=== PATIENT | male | born 1990 | race Two or more races ===

== ENCOUNTER 2024-10-09 21:10 | Emergency (ER) | payer MEDICARE, OTHER ==
[~2024-10-09] VITALS: Ht 165.1 cm; Wt 59.0 kg
[2024-10-09 21:21] VITALS: BP 144/90; PULSE 90; RESP 14; O2SAT 98
== END 2024-10-10 01:17 | disposition left against medical advice (07) ==
LOC: EDBD 21:10 → ER 21:10
DX: R04.0 Epistaxis (principal); Z53.21 Procedure and treatment not carried out due to patient leaving prior to being seen by health care provider

== ENCOUNTER 2025-06-08 14:20 | Inpatient (IN) | payer MEDICARE, MEDICAID ==
[~2025-06-08] VITALS: Ht 172.7 cm; Wt 56.9 kg
--- NOTE | 2025-06-08 15:24 | ED.PDOC ---
GI ASSESSMENT HPI Comments This is a 35 year old male presenting to the ED with chief complaint of N/V/D. Patient reports that he has been experiencing N/V/D since Thursday. Patient relays that he feels weak and is unable to eat much now. Patient states he is currently on dialysis with his last round being this morning. Patient denies any abdominal pain, fever, chills, dizziness, or hematemesis. Chief Complaint: General Weakness Time Seen by MD: 15:20 Reviewed Notes: Nurses Notes, Medications, Allergies Allergies: Coded Allergies: NO KNOWN ALLERGIES (Unverified , 10/09/24) Information Source: Patient Mode of Arrival: Ambulatory Timing: Days Duration: Since onset Prehospital treatment: None Vomitus: Watery Stool: Watery Severity: Moderate Recent: None Recent Hx of: None Pain Location: None Modifying Factors: Nothing Associated sign and symptoms: Nausea, Vomiting, Diarrhea Past Medical History PAST MEDICAL HISTORY: CKF, HIV Surgical History: Denies all surgeries Family History Family History: Reviewed,noncontributory to illness Social History Smoker: Non-Smoker Alcohol: Denies ETOH Use Drugs: Denies Drug Use Lives In: Home Constitutional: denies: chills, diaphoresis, fatigue, fever, malaise, sweats, weakness, others EENTM: denies: blurred vision, double vision, ear bleeding, ear discharge, ear drainage, ear pain, ear ringing, eye pain, eye redness, hearing loss, mouth pain, mouth swelling, nasal discharge, nose bleeding, nose congestion, nose pain, photophobia, tearing, throat pain, throat swelling, voice changes, others Respiratory: denies: cough, hemoptysis, orthopnea, SOB at rest, shortness of breath, SOB with excertion, stridor, wheezing, others Cardiovascular: denies: chest pain, dizzy spells, diaphoresis, Dyspnea on exertion, edema, irregular heart beat, left arm pain, lightheadedness, palpitations, PND, syncope, others Gastrointestinal: reports: diarrhea, nausea, vomiting; denies: abdomen diste nded, abdominal pain, blood streaked bowels, constipated, dysphagia, difficulty swallowing, hematemesis, melena, poor appetite, poor fluid intake, rectal bleeding, rectal pain, others Genitourinary: denies: burning, dysuria, flank pain, frequency, hematuria, incontinence, penile discharge, penile sore, pain, testicle pain, testicle swelling, urgency, others Neurological: denies: dizziness, fainting, headache, left sided numbness, left sided weakness, numbness, paresthesia, pre-existing deficit, right sided numbness, right sided weakness, seizure, speech problems, tingling, tremors, weakness, others Musculoskeletal: denies: back pain, gout, joint pain, joint swelling, muscle pain, muscle stiffness, neck pain, others Integumetry: denies: bruises, change in color, change in hair/nails, dryness, laceration, lesions, lumps, rash, wounds, others Allergic/Immunocompromised: denies: Difficulty Healing, Frequent Infections, Hives, Itching, others Hematologic/Lymphatic: denies: anemia, blood clots, easy bleeding, easy bruising, swollen glands, others Endocrine: denies: excessive hunger, excessive sweating, excessive thirst, excessive urination, flushing, intolerance to cold, intolerance to heat, unexplained weight gain, unexplained weight loss, others Psychiatric: denies: anxiety, bipolar disorder, depression, hopeless, panic disorder, schizophrenia, sleepless, suicidal, others All Other Systems: Reviewed and Negative Physical Exam General Appearance: No Apparent Distress, Normal HEENT: Normal ENT Inspection, Pharynx Normal, TMs Normal Neck: Full Range of Motion, Non-Tender, Normal, Normal Inspection Respiratory: Chest Non-Tender, Lungs Clear, No Accessory Muscle Use, No Respiratory Distress, Normal Breath Sounds Cardiovascular: No Edema, No JVD, No Murmur, No Gallop, Normal Peripheral Pulses, Regular Rate/Rhythm Breast Exam: Deferred Gastrointestinal: No Organomegaly, Non Tender, No Pulsatile Mass, Normal Bowel Sounds, Soft Genitalia: Deferred Pelvic: Deferred Rectal: Deferred Extremities: No calf tenderness, Normal capillary refill, Normal inspection, Normal range of motion, Non-tender, No pedal edema Musculoskeletal : Apperance: Normal Neurologic: Alert, obstetrics gyn II-XII nml as Tested, No Motor Deficits, Normal Affect, Normal Mood, No Sensory Deficits Cerebellar Function: Normal Reflexes: Normal Skin: Dry, Normal Color, Warm Lymphatic: No Adenopathy Was a procedure done? Was a procedure done?: No GI differential Dx Differential Diagnosis: Cholecystitis, Gastritis/PUD, Gastroenteritis, Urolithiasis, Dehydration, Electrolyte Imbalance X-Ray, Labs, Meds, VS Vital Signs Date Time Temp Pulse Resp B/P (MAP) Pulse Ox O2 Delivery O2 Flow Rate FiO2 06/08/25 15:47 97 Room Air* 0 21 06/08/25 15:45 93 06/08/25 15:37 98.4 90 17 109/71 (84) 96 98.4 06/08/25 14:22 98.0 85 16 102/71 97 98.0 Lab Test 06/08/25 15:29 Range/Units White Blood Count 4.4 4.4-10.8 10^3/uL Red Blood Count 4.33 L 4.5-5.90 10^6/uL Hemoglobin 15.4 13.5-17.5 g/dL Hematocrit 46.3 41.0-53.0 % Mean Corpuscular Volume 106.8 H 80.0-100.0 fL Mean Corpuscular Hemoglobin 35.5 H 28.0-32.0 pg Mean Corpuscular Hemoglobin Concent 33.3 32.0-36.0 g/dL Red Cell Distribution Width 16.3 H 11.8-14.3 % Platelet Count 181 140-450 10^3/uL Mean Platelet Volume 9.3 6.9-10.8 fL Neutrophils (%) (Auto) 37.0-80.0 % Lymphocytes (%) (Auto) 10.0-50.0 % Monocytes (%) (Auto) 0.0-12.0 % Basophils (%) (Auto) 0.0-2.0 % Neutrophils # (Auto) 1.6-8.6 10 ^3/uL Lymphocytes # (Auto) 0.4-5.4 10 ^3/uL Monocytes # (Auto) 0-1.3 10 ^3/uL Differential Total Cells Counted 100.0 100 Neutrophils % (Manual) 60 37.0-80.0 Band Neutrophils % (Manual) 0 Lymphocytes % (Manual) 20 10.0-50.0 Monocytes % (Manual) 17 H 0-12 Eosinophils % (Manual) 3 0-7 Basophils % (Manual) 0 0.0-2.0 Metamyelocytes % (manual) 0 Myelocytes % (Manual) 0 Promyelocytes % (Manual) 0 Blast Cells % (Manual) 0 Reactive Lymphocytes 0 Platelet Estimate Adequate Anisocytosis (manual) Slight Macrocytosis Moderate Sodium Level 134 L 136-145 mmol/L Potassium Level 4.3 3.5-5.1 mmol/L Chloride Level 90 L 98-107 mmol/L Carbon Dioxide Level 27 20-31 mmol/L Anion Gap 17 H 5-15 Blood Urea Nitrogen 22 9-23 mg/dL Creatinine 10.89 *H 0.700-1.30 mg/dL Glomerular Filtration Rate Calc 6 >90 mL/min BUN/Creatinine Ratio 2.0 L 10.0-20.0 Serum Glucose 76 74-106 mg/dL Calcium Level 9.8 8.7-10.4 mg/dL Current Medications Medications (Trade) Dose Ordered Sig/Keith Route Start Time Stop Time Status Last Admin Sodium Chloride 500 ml @ 1,000 mls/hr Q30M ONCE IV 06/08/25 15:00 06/08/25 15:29 DC 06/08/25 15:36 Ondansetron HCl (Zofran) 4 mg ONCE ONCE IV 06/08/25 15:00 06/08/25 15:01 DC 06/08/25 15:36 Time of 1ST Reevaluation: 16:19 Reevaluation 1ST: Unchanged Patient Education/Counseling: Diagnosis, Treatment Family Education/Counseling: No Family Present SEPSIS Sepsis Screen Date sepsis recognized/suspect: Jun 08, 2025 Time Sepsis recognized/suspect: 1423 Recent Procedure: No On Antibiotic Therapy: No Respiratory Rate >20: No Heart Rate >90: No Temp<36 C (96.8 F) or >38.3 C: No SBP <90 or MAP <65 mmHG: No New Acute Mental Status Change: No Is the patient on CPAP, BIPAP,: No Physician Orders Urinalysis (06/08/25 14:55) Chest Portable (06/08/25 14:55) Vital Signs Date Time Temp Pulse Resp B/P (MAP) Pulse Ox O2 Delivery O2 Flow Rate FiO2 06/08/25 15:47 97 Room Air* 0 21 06/08/25 15:45 93 06/08/25 15:37 98.4 90 17 109/71 (84) 96 98.4 06/08/25 14:22 98.0 85 16 102/71 97 98.0 Laboratory Tests Test 06/08/25 15:29 White Blood Count 4.4 10^3/uL (4.4-10.8) Medications Medications Dose Ordered Sig/Keith Route Start Time Stop Time Status Last Admin Dose Admin Ondansetron HCl 4 mg ONCE ONCE IV 06/08/25 15:00 06/08/25 15:01 DC 06/08/25 15:36 Sodium Chloride 500 ml @ 1,000 mls/hr Q30M ONCE IV 06/08/25 15:00 06/08/25 15:29 DC 06/08/25 15:36 Departure 1 Departure Time of Disposition: 18:06 (Patient with intractable nausea and vomiting we will admit patient for further workup and expert consultation) Impression: Primary Impression: Intractable nausea and vomiting Additional Impression: Near syncope Disposition: ADMITTED INPATIENT Admit to: Med Surg Condition: Serious Critical Care Note Critical Care Time?: No Stability Stability form required: No Heart Score Heart Score: Heart Score Response (Comments) Value History N/A 0 EKG N/A 0 Age N/A 0 Risk Factors N/A 0 Troponin N/A 0 Total 0 I personally scribed for TOBY FARRIS MD ([email or web address]) on 06/08/25 at 15:23. Electronically submitted by Stalin Moreira ([email or web address]). TOBY FARRIS MD Jun 08, 2025 15:23
[2025-06-08] MEDS: ONDANSETRON HCL 4 MG/2 ML VIAL IV ONE (15:36)
[2025-06-08] MEDS: SODIUM CHLORIDE 0.9% 500 ML IV ONE (15:36)
[2025-06-08 15:43] LABS: Mean Corpuscular Volume 106.8 fL (80.0-100.0)
[2025-06-08 15:45] LABS: Hematocrit 46.3 % (41.0-53.0); Hemoglobin 15.4 g/dL (13.5-17.5); Mean Corpuscular Hemoglobin 35.5 pg (28.0-32.0)
--- NOTE | 2025-06-08 15:54 | DVH ---
CHEST RADIOGRAPH Indication: weakness Technique: Single frontal view of the chest was obtained Comparison: XR CHEST 1 VIEW on DOS: 06/08/24, XR CHEST 1 VIEW on DOS: 10/25/23, XR CHEST 1 VIEW on DOS: 10/22/23 FINDINGS: Lines and Tubes: None Lungs: No focal consolidation. Pleura: No effusion. No pneumothorax. Cardiomediastinal contours: Unremarkable Bones: No acute osseous abnormality. IMPRESSION: 1. No acute cardiopulmonary disease.
[2025-06-08 15:55] LABS: Potassium 4.3 mmol/L (3.5-5.1)
[2025-06-08 15:56] LABS: Anion Gap 17 (5-15); Calcium 9.8 mg/dL (8.7-10.4); Carbon Dioxide 27 mmol/L (20-31)
[2025-06-08 15:59] LABS: Chloride 90 mmol/L (98-107); Sodium 134 mmol/L (136-145)
[2025-06-08 16:01] LABS: BUN/Creatinine Ratio 2.0 (10.0-20.0); Blood Urea Nitrogen 22 mg/dL (9-23); Glucose 76 mg/dL (74-106)
[2025-06-08 16:42] LABS: Anisocytosis Slight; Macrocytosis Moderate; Total Cells Counted 100.0 (100)
[2025-06-08 20:00] VITALS: PULSE 73; RESP 17; O2SAT 94
--- NOTE | 2025-06-08 20:39 | DVHHPRES ---
History of Present Illness Resident Creating Document: JULIANE TALLEY RESIDENT History of Present Illness This is 35-year-old male with past medical history of HIV infection on Biktarvy, ESRD on dialysis, hypertension, presented to the ER with chief complain of nausea and diarrhea. Symptoms started 5 days back, he complained diarrheal episodes every 2 hours, described as watery like consistency, brown in color, without blood. He also complained of associated loss of appetite, nausea and vomiting. Patient reported 1 or 2 episode of vomiting daily, vomitus contained food/clear liquid, no hematemesis. He reports losing 4 lb weight since the start of this week, owing to loss of appetite. He traveled to [facility] 2 weeks ago but denies eating from food truck or any consumption of raw seafood. He is on hemodialysis, Tuesdays, Saturdays. Patient reports being compliant on his medications. PMHx: HIV infection on Biktarvy, ESRD on dialysis, hypertension PSHx: No significant surgical history Social history: Denies smoking, alcohol, recreational drug use. Lives in house with family, full code, next to kin is mother. Home medication: Biktarvy, amiodarone, sevelamer, trimethoprim sulfamethoxazole Allergic history: No known allergies Patient was examined at bedside today. Review of Systems Review of Systems ROS: Constitutional: 4 lb weight loss since the start of this week, subjective fever and chills HEENT: Denies changes in vision and hearing. Respiratory: Denies shortness of breath and cough Cardiovascular: Denies chest discomfort or palpitations GI: Nausea, vomiting, diarrhea : Denies dysuria and urinary frequency. Musculoskeletal: Denies myalgias and joint pain Skin: Denies rash and pruritus. Neurological: Denies dizziness, headache, vision or hearing problems Allergies: Coded Allergies: NO KNOWN ALLERGIES (Unverified , 10/09/24) Exam Vital Signs Vital Signs Date Time Temp Pulse Resp B/P (MAP) Pulse Ox O2 Delivery O2 Flow Rate FiO2 06/08/25 20:05 98.6 88 17 116/72 (87) 96 98.6 06/08/25 20:00 Room Air* 0 21 Exam General: Patient looks cachectic. Patient alert and oriented in person, place and time. Patient following commands. HEENT: Conjunctival injection in bilateral eyes, dry mucous membranes Respiratory/pulmonary: Clear lungs bilaterally, vesicular murmurs present in almost all lung cuellar, no associated crackles or wheezes. Cardiovascular: Normal heart sounds S1 and S2 with no associated murmurs Abdomen: Sunken abdomen without tenderness Extremities: Well-healed fistula on left arm Peripheral Pulses: 3+ Radial (R). 3+ Radial (L). 3+ Dorsalis pedis (R). 3+ Dorsalis pedis(L) Skin: No rashes or pruritus, there is no sacral edema present at this time. Neurological: Intact cranial nerves with no focal neurologic deficits Labs/Xrays Labs Test 06/08/25 15:29 Range/Units White Blood Count 4.4 4.4-10.8 10^3/uL Red Blood Count 4.33 L 4.5-5.90 10^6/uL Hemoglobin 15.4 13.5-17.5 g/dL Hematocrit 46.3 41.0-53.0 % Mean Corpuscular Volume 106.8 H 80.0-100.0 fL Mean Corpuscular Hemoglobin 35.5 H 28.0-32.0 pg Mean Corpuscular Hemoglobin Concent 33.3 32.0-36.0 g/dL Red Cell Distribution Width 16.3 H 11.8-14.3 % Platelet Count 181 140-450 10^3/uL Mean Platelet Volume 9.3 6.9-10.8 fL Neutrophils (%) (Auto) 37.0-80.0 % Lymphocytes (%) (Auto) 10.0-50.0 % Monocytes (%) (Auto) 0.0-12.0 % Basophils (%) (Auto) 0.0-2.0 % Neutrophils # (Auto) 1.6-8.6 10 ^3/uL Lymphocytes # (Auto) 0.4-5.4 10 ^3/uL Monocytes # (Auto) 0-1.3 10 ^3/uL Differential Total Cells Counted 100.0 100 Neutrophils % (Manual) 60 37.0-80.0 Band Neutrophils % (Manual) 0 Lymphocytes % (Manual) 20 10.0-50.0 Monocytes % (Manual) 17 H 0-12 Eosinophils % (Manual) 3 0-7 Basophils % (Manual) 0 0.0-2.0 Metamyelocytes % (manual) 0 Myelocytes % (Manual) 0 Promyelocytes % (Manual) 0 Blast Cells % (Manual) 0 Reactive Lymphocytes 0 Platelet Estimate Adequate Anisocytosis (manual) Slight Macrocytosis Moderate Sodium Level 134 L 136-145 mmol/L Potassium Level 4.3 3.5-5.1 mmol/L Chloride Level 90 L 98-107 mmol/L Carbon Dioxide Level 27 20-31 mmol/L Anion Gap 17 H 5-15 Blood Urea Nitrogen 22 9-23 mg/dL Creatinine 10.89 *H 0.700-1.30 mg/dL Glomerular Filtration Rate Calc 6 >90 mL/min BUN/Creatinine Ratio 2.0 L 10.0-20.0 Serum Glucose 76 74-106 mg/dL Calcium Level 9.8 8.7-10.4 mg/dL SEPSIS Sepsis Screen Date sepsis recognized/suspect: Jun 08, 2025 Time Sepsis recognized/suspect: 2003 Recent Procedure: No On Antibiotic Therapy: No Respiratory Rate >20: No Heart Rate >90: No Temp<36 C (96.8 F) or >38.3 C: No SBP <90 or MAP <65 mmHG: No New Acute Mental Status Change: No Is the patient on CPAP, BIPAP,: No Physician Orders Urinalysis (06/08/25 14:55) Chest Portable (06/08/25 14:55) Vital Signs Date Time Temp Pulse Resp B/P (MAP) Pulse Ox O2 Delivery O2 Flow Rate FiO2 06/08/25 20:05 98.6 88 17 116/72 (87) 96 98.6 06/08/25 20:00 73 17 94 Room Air* 0 21 06/08/25 15:47 97 Room Air* 0 21 06/08/25 15:45 93 06/08/25 15:37 98.4 90 17 109/71 (84) 96 98.4 06/08/25 14:22 98.0 85 16 102/71 97 98.0 Laboratory Tests Test 06/08/25 15:29 White Blood Count 4.4 10^3/uL (4.4-10.8) Medications Medications Dose Ordered Sig/Keith Route Start Time Stop Time Status Last Admin Dose Admin Ondansetron HCl 4 mg ONCE ONCE IV 06/08/25 15:00 06/08/25 15:01 DC 06/08/25 15:36 4 MG Sodium Chloride 500 ml @ 1,000 mls/hr Q30M ONCE IV 06/08/25 15:00 10/9/25 15:29 DC 06/08/25 15:36 1,000 MLS/HR Assessment/Plan Assessment/Plan Acute infectious enterocolitis Labs showed neutrophilic leukocytosis IV fluids IV ceftriaxone 1 g daily IV metronidazole 500 mg 3 times daily Monitor electrolytes, avoid opioids Stool WBC, culture, ova, parasite, C diff ordered Clear liquid diet; Advance diet as tolerated HIV infection on Biktarvy CD4/CD8 count ordered Continue anti-retroviral medication ESRD on dialysis Dialysis days TTS Restricting IV fluids to avoid fluid overload Nephrology consulted Continue sevelamer 800 Renally dosed drugs Low salt diet Repeat BMP Pancreatitis, ruled out Lipase elevated CT abdomen shows no acute pancreatitis, questionable gallbladder sludge DIET: Clear liquid DVT PROPHYLAXIS: Sequential compression device GI PROPHYLAXIS: Protonix CODE STATUS: Goals of care discussed with patient at bedside for more than 36 minutes. Full code DISPOSITION: Med/surge Patient's status and plan discussed with the patient. Case discussed with Dr. Benavides Plan discussed with: Patient, Other (Nurses) Date of Service: Jun 08, 2025 Billing Provider: WIL BENAVIDES MD Common Visit Codes: [id number] INP/OBS CARE (HIGH) Secondary Visit Codes: [id number] CARE PLAN 30 MINUTES JULIANE ATLLEY RESIDENT Jun 08, 2025 20:39 MARITA MAN RESIDENT Jun 09, 2025 08:28
[2025-06-08 21:14] LABS: Alanine Aminotransferase 25.0 U/L (7-40); Alkaline Phosphatase 97.0 U/L (46-116); Bilirubin, Direct 0.2 mg/dL (<0.3); Bilirubin, Total 0.5 mg/dL (0.2-1.0); HDL Cholesterol 45.0 mg/dL (40-59); Magnesium 2.3 mg/dL (1.6-2.6)
[2025-06-08 21:30] LABS: Albumin 5.1 g/dL (3.2-4.8); Cholesterol 210.0 mg/dL (< 200); Total Protein 8.9 g/dL (5.7-8.2); Triglycerides 284.0 mg/dL (< 150)
[2025-06-08 21:50] LABS: Lipase 141.0 U/L (12-53)
[2025-06-08 21:57] LABS: INR 1.03 (0.9-1.15); Partial Thromboplastin Time 30.7 SEC (24.5-34.5); Prothrombin Time 10.9 sec (9.3-11.8)
[2025-06-08] MEDS ORDERED: MORPHINE SULFATE INJ 2 MG/ml SYRG IV PRN ×2 (23:00)
[2025-06-08] MEDS ORDERED: ONDANSETRON HCL 4 MG/2 ML VIAL IV PRN (23:00)
[2025-06-08] MEDS ORDERED: NITROGLYCERIN 0.4 MG SL TAB SL PRN (23:00)
[2025-06-09] MEDS: SODIUM CHLORIDE 0.9% 1,000 ML IV ONE (00:49)
[2025-06-09] MEDS: SODIUM CHLORIDE 0.9% 250 ML IV ONE (01:45)
--- NOTE | 2025-06-09 03:11 | DVH ---
Exam: CT CT AB PEL WO CON-NO ORAL OR IV History: Rule out pancreatitis Comparison Study: CT abdomen/pelvis 03/30/2025 (report only available) Technique: Multidetector spiral CT of the abdomen was performed from lung bases to pubic symphysis. I maging was performed without IV contrast. Axial, coronal and sagittal multiplanar reformats were obta ined from the axial data set by the technologist. Radiation Dose : 1. Abdomen/Pelvis: CTDIvol 5.07 mGy, DLP 274.92 mGy*cm. Findings: Evaluation of solid organs is limited due to lack of intravenous contrast use. Lower Chest: No acute findings. Liver: Unremarkable. Gallbladder and Biliary Tree: Homogeneously increased density in the gallbladder. No evident wall th ickening or ductal dilation. Pancreas: Unremarkable. Spleen: Unremarkable. Adrenal Glands: Thickening without discrete nodule. Kidneys/Ureters: No urinary stone or obstruction. Moderate to severe renal atrophy. Bladder: Grossly unremarkable for degree of distention. Pelvic Organs: Unremarkable as visualized. Bowel: Normal caliber without wall thickening. A majority of small and large bowel loops are gas and/ or fluid-filled with a few short air-fluid levels. No evidence of appendicitis. Vasculature: Unremarkable. Lymphadenopathy: No obvious adenopathy. Peritoneum: No ascites, free air, or fluid collection. Abdominal Wall: No significant hernia. Musculoskeletal: No acute findings. IMPRESSION: 1. Unremarkable appearance of the pancreas. 2. CT findings can be seen in the setting of enterocolitis. 3. Diffusely increased density in the gallbladder. Considerations include excretion of recently admi nistered contrast, or diffuse sludge/stone contents. 4. Advanced renal atrophy. Radiation optimization: All CT scans at this facility use at least one of these dose optimization stevie hniques: automated exposure control mA and/or kV adjustment per patient size (includes targeted exam s where dose is matched to clinical indication) or iterative reconstruction.
[2025-06-09 07:16] LABS: Hematocrit 41.3 % (41.0-53.0); Hemoglobin 13.7 g/dL (13.5-17.5); Mean Corpuscular Hemoglobin 35.7 pg (28.0-32.0); Mean Corpuscular Volume 108.0 fL (80.0-100.0)
[2025-06-09 07:31] LABS: Alanine Aminotransferase 16 U/L (7-40); Alkaline Phosphatase 79 U/L (46-116); Anion Gap 21 (5-15); BUN/Creatinine Ratio 2.4 (10.0-20.0); Calcium 9.2 mg/dL (8.7-10.4); Carbon Dioxide 20 mmol/L (20-31); Potassium 4.5 mmol/L (3.5-5.1); Sodium 137 mmol/L (136-145); Total Protein 8.0 g/dL (5.7-8.2)
[2025-06-09 07:32] LABS: Albumin 4.5 g/dL (3.2-4.8); Bilirubin, Total 0.3 mg/dL (0.2-1.0)
[2025-06-09 07:38] LABS: Blood Urea Nitrogen 31 mg/dL (9-23); Chloride 96 mmol/L (98-107); Glucose 53 mg/dL (74-106)
[2025-06-09] MEDS: SEVELAMER 800 MG TAB PO SCH (08:00)
[2025-06-09 08:05] LABS: Total Cells Counted 100.0 (100)
[2025-06-09 08:06] LABS: Macrocytosis Slight
[2025-06-09 08:15] VITALS: BP 100/56; PULSE 81; RESP 18; TEMP 98.7; O2SAT 98
[2025-06-09 08:30] VITALS: BP 100/56; PULSE 81; PULSE 87; RESP 18; TEMP 98.7; O2SAT 98
[2025-06-09] MEDS ORDERED: PANTOPRAZOLE 40 MG/10 ML VIAL INJ IV SCH (10:00)
[2025-06-09] MEDS: SULFAMETHOX W/TRIMETH(800/160MG) DS TAB PO ONE (11:19)
[2025-06-09] MEDS: PANTOPRAZOLE 40 MG TAB PO ONE (11:19)
[2025-06-09] MEDS: BIKTARVY 50-200-25MG TABLET PO SCH (12:47)
[2025-06-09 13:30] VITALS: BP 111/76; PULSE 83; RESP 20; TEMP 98.6; O2SAT 97
--- NOTE | 2025-06-09 16:22 | DVHPNRES ---
Progress Note Date Seen: Jun 09, 2025 Resident Creating Document: BILLY JORGE RESIDENT Medical Necessity Reason Pt with a Central, PICC or Fol: No Subjective Review of Systems Patient is a 35-year-old male with past medical history of HIV infection on Biktarvy, ESRD on dialysis, hypertension, presented to [facility] ED with complaint of nausea and diarrhea. Symptoms started 5 days back, he complained diarrheal episodes every 2 hours, described as watery like consistency, brown in color, without blood. He also complained of associated loss of appetite, nausea and vomiting. Patient reported 1 or 2 episode of vomiting daily, vomitus contained food/clear liquid, no hematemesis. He reports losing 4 lb weight since the start of this week, owing to loss of appetite. He traveled to [facility] 2 weeks ago but denies eating from food truck or any consumption of raw seafood. He is on hemodialysis, Tuesdays, Saturdays. Patient reports being compliant on his medications. Social history: Denies smoking, alcohol, recreational drug use. Lives in house with family, full code, next to kin is mother. Home medication: Biktarvy, amiodarone, sevelamer, trimethoprim sulfamethoxazole Allergic history: No known allergies Patient was examined at bedside today. Review of Systems ROS: Constitutional: 4 lb weight loss since the start of this week, subjective fever and chills HEENT: Denies changes in vision and hearing. Respiratory: Denies shortness of breath and cough Cardiovascular: Denies chest discomfort or palpitations GI: Nausea, vomiting, diarrhea : Denies dysuria and urinary frequency. Musculoskeletal: Denies myalgias and joint pain Skin: Denies rash and pruritus. Neurological: Denies dizziness, headache, vision or hearing problems Past medical history: HIV infection on Biktarvy, ESRD on dialysis, hypertension Past surgical history: No significant surgical history Home medications: Past Hospitalization: Social & Personal history: Denies smoking, alcohol, recreational drug use. Allergies: None Patient seen and examined at bedside. Patient is alert and oriented to time, place person and responding to all questions. Eyes: No Pain, No Vision change, No Conjunctivae inflammation, No Eyelid inflammation, No Other, No Redness ENT: No Ear pain, No Ear discharge, No Nose pain, No Nose discharge, No Nose congestion, No Mouth pain, No Mouth swelling, No Throat pain, No Throat swelling, No Other Cardiovascular: No Chest Pain, No Palpitations, No Orthopnea, No Paroxysmal No Dyspnea, No Edema, No Lt Headedness, No Other Respiratory: No Cough, No Dry, No Shortness of breath, No SOB with exertion, No Wheezing, No Hemoptysis, No Pleuritic Pain, No Sputum, No Other Gastrointestinal: No Nausea, No Vomiting, No Abdominal Pain, No Diarrhea, No Constipation, No Melena, No Hematochezia, No Other Genitourinary: No Dysuria, No Frequency, No Incontinence, No Hematuria, No Retention, No Other Musculoskeletal: No other, No neck pain, No shoulder pain, No arm pain, No back pain, No hand pain, No leg pain, No foot pain Skin: No Rash, No Lesions, No Jaundice, No Bruising, No Other Objective vital signs Vital Sign Date Time Temp Pulse Resp B/P (MAP) Pulse Ox O2 Delivery O2 Flow Rate FiO2 06/09/25 13:30 98.6 83 20 111/76 (88) 97 98.6 06/09/25 08:30 Room Air* 0 21 Total Intake and Output 06/08/25 06/08/25 06/09/25 15:00 23:00 07:00 Intake Total 500 ml Balance 500 ml medications Current Medications Medications Dose Ordered Sig/Keith Route Start Time Stop Time Status Last Admin Dose Admin Ondansetron HCl 4 mg Q4HP PRN IV 06/08/25 23:00 Morphine Sulfate 2 mg Q4HPRN PRN IV 06/08/25 23:00 Metronidazole 100 ml @ 100 mls/hr Q8HR IV 06/08/25 23:00 06/09/25 14:10 100 MLS/HR Ceftriaxone Sodium 50 ml @ 100 mls/hr DAILY@09 IV 06/09/25 23:00 Sevelamer HCl 800 mg TIDWM PO 06/09/25 08:00 06/09/25 11:19 800 MG Patient Own Medication 1 DAILY PO 06/09/25 10:00 06/09/25 12:47 1 Trimethoprim/ Sulfamethoxazole 0.5 tab BID PO 06/09/25 22:00 Pantoprazole Sodium 40 mg DAILY@0600 PO 06/10/25 06:00 Examination General: Patient looks cachectic. Patient alert and oriented in person, place and time. Patient following commands. HEENT: Conjunctival injection in bilateral eyes, dry mucous membranes Respiratory/pulmonary: Clear lungs bilaterally, vesicular murmurs present in almost all lung cuellar, no associated crackles or wheezes. Cardiovascular: Normal heart sounds S1 and S2 with no associated murmurs Abdomen: Sunken abdomen without tenderness Extremities: Well-healed fistula on left arm Peripheral Pulses: 3+ Radial (R). 3+ Radial (L). 3+ Dorsalis pedis (R). 3+ Dorsalis pedis(L) Skin: No rashes or pruritus, there is no sacral edema present at this time. Neurological: Intact cranial nerves with no focal neurologic deficits laboratory and microbiology Laboratory Tests 06/09/25 06:31 Test 06/09/25 06:31 Range/Units Serum Glucose 53 L 74-106 mg/dL Labs and/or images reviewed: Labs reviewed by me, Image(s) reviewed by me Problem List/Assessment/Plan Problem List/Assessment/Plan Assessment/Plan Acute infectious enterocolitis Labs showed neutrophilic leukocytosis IV fluids IV ceftriaxone 1 g daily IV metronidazole 500 mg 3 times daily Monitor electrolytes, avoid opioids Stool WBC, culture, ova, parasite, C diff ordered Clear liquid diet; Advance diet as tolerated HIV infection on Biktarvy CD4/CD8 count ordered Continue anti-retroviral medication ESRD on dialysis Dialysis days TTS Restricting IV fluids to avoid fluid overload Nephrology consulted Continue sevelamer 800 Renally dosed drugs Low salt diet Repeat BMP Pancreatitis, ruled out Lipase elevated CT abdomen shows no acute pancreatitis, questionable gallbladder sludge DIET: Soft DVT PROPHYLAXIS: Sequential compression device GI PROPHYLAXIS: Protonix Goals of care: Full code, discussed for >20 minutes on 06/09/25 Plan discussed with patient Plan discussed with Dr. Angel Plan discussed with: Patient My Orders My Orders Orders - BILLY JORGE Procedure Category Date Status Time Complete Blood Count LAB 06/10/25 Verified 04:00 Comprehensive LAB 06/10/25 Verified Metabolic Panel 04:00 Date of Service: Jun 09, 2025 Billing Provider: NATA ANGEL MD Common Visit Codes: [id number] INP/OBS CARE(HIGH) BILLY JORGE Jun 09, 2025 16:22 NATA ANGEL MD Jun 09, 2025 22:21
[2025-06-09 17:37] VITALS: BP 105/72; PULSE 79; RESP 16; TEMP 98.1; O2SAT 97
[2025-06-09 21:00] VITALS: BP 105/77; PULSE 86; RESP 16; TEMP 99.1; O2SAT 99
--- NOTE | 2025-06-09 21:15 | DVHINCON2 ---
Date of service: Jun 09, [address] Rodriguez Reason for Consultation ESRD and dialysis management History of Present Illness Dandre Huitron is a 35-year-old male with Past Medical History pertinent for HIV infection on Biktarvy, ESRD on dialysis and Hypertension who presented to the hospital with complaint of nausea and diarrhea x 5 days. Patient reports having diarrheal episodes every 2 hours. Also endorses associated loss of appetite and vomiting. He reports losing 4 lb weight since the start of this week, owing to loss of appetite. Reports compliance with dialysis treatments. While in ED, CT Abdomen Pelvis without contrast reported unremarkable appearance of the pancreas; CT findings can be seen in the setting of enterocolitis; diffusely increased density in the gallbladder; considerations include excretion of recently administered contrast, or diffuse sludge/stone contents; advanced renal atrophy. Chest x-ray reported no acute cardiopulmonary disease. Allergies: Coded Allergies: NO KNOWN ALLERGIES (Unverified , 10/09/24) Current Medications Current Medications Medications (Trade) Dose Ordered Sig/Keith Route PRN Reason Start Time Stop Time Status Last Admin Ceftriaxone Sodium 50 ml @ 100 mls/hr DAILY@09 IV 06/09/25 23:00 06/10/25 09:10 Trimethoprim/ Sulfamethoxazole (Bactrim Ds Tablet) 0.5 tab BID PO 06/09/25 22:00 06/10/25 09:09 Pantoprazole Sodium (Protonix Tablet) 40 mg DAILY@0600 PO 06/10/25 06:00 06/10/25 05:27 Family History: Patient reports no known family medical history. Review of Systems Constitutional: 4 lb weight loss since the start of this week, subjective fever and chills Respiratory: Denies shortness of breath and cough Cardiovascular: Denies chest discomfort or palpitations GI: Nausea, vomiting, diarrhea Skin: Denies rash and pruritus. Neurological: Denies dizziness, headache, vision or hearing problems All other systems reviewed and negative unless otherwise noted in HPI. H&P Exam Vital Signs/I&O Vital Sign Date Time Temp Pulse Resp B/P (MAP) Pulse Ox O2 Delivery O2 Flow Rate FiO2 06/10/25 16:50 98.4 80 20 115/71 (86) 96 98.4 06/10/25 08:00 Room Air* 0 21 Intake and Output 06/09/25 06/10/25 19:00 07:00 Intake Total 600 ml 475 ml Balance 600 ml 475 ml Intake Oral 500 ml 225 ml IV Total 100 ml 250 ml # Bowel Movements 1 Physical Exam Vitals and nursing notes reviewed. General: Cachectic. In no acute disterss. HEENT: Conjunctival injection in bilateral eyes, dry mucous membranes. Respiratory/pulmonary: Clear lungs bilaterally, vesicular murmurs present in almost all lung cuellar, no associated crackles or wheezes. Cardiovascular: Normal heart sounds S1 and S2 with no associated murmurs Abdomen: Sunken abdomen without tenderness. Extremities: Well-healed fistula on left arm. No extremity deformity. Skin: No rashes or pruritus, there is no sacral edema present at this time. Neurological: Intact cranial nerves with no focal neurologic deficits. Alert and oriented in person, place and time. Labs/Diagnostic Data Labs/Diagnostic Data Laboratory Tests Test 06/10/25 04:38 06/10/25 04:35 06/09/25 06:31 06/08/25 15:29 Range/Units White Blood Count 4.5 4.6 4.4 4.4-10.8 10^3/uL Red Blood Count 3.96 L 3.82 L 4.33 L 4.5-5.90 10^6/uL Hemoglobin 14.0 13.7 15.4 13.5-17.5 g/dL Hematocrit 41.9 41.3 # 46.3 41.0-53.0 % Mean Corpuscular Volume 106.0 H 108.0 H 106.8 H 80.0-100.0 fL Mean Corpuscular Hemoglobin 35.4 H 35.7 H 35.5 H 28.0-32.0 pg Mean Corpuscular Hemoglobin Concent 33.4 33.1 33.3 32.0-36.0 g/dL Red Cell Distribution Width 16.0 H 16.7 H 16.3 H 11.8-14.3 % Platelet Count 159 154 181 140-450 10^3/uL Mean Platelet Volume 8.9 9.3 9.3 6.9-10.8 fL Neutrophils (%) (Auto) 37.0-80.0 % Lymphocytes (%) (Auto) 10.0-50.0 % Monocytes (%) (Auto) 0.0-12.0 % Basophils (%) (Auto) 0.0-2.0 % Neutrophils # (Auto) 1.6-8.6 10 ^3/uL Lymphocytes # (Auto) 0.4-5.4 10 ^3/uL Monocytes # (Auto) 0-1.3 10 ^3/uL Differential Total Cells Counted 100.0 100.0 100.0 100 Neutrophils % (Manual) 74 69 60 37.0-80.0 Band Neutrophils % (Manual) 1 2 0 Lymphocytes % (Manual) 15 17 20 10.0-50.0 Monocytes % (Manual) 3 11 17 H 0-12 Eosinophils % (Manual) 6 1 3 0-7 Basophils % (Manual) 0 0 0 0.0-2.0 Metamyelocytes % (manual) 0 0 0 Myelocytes % (Manual) 1 0 0 Promyelocytes % (Manual) 0 0 0 Blast Cells % (Manual) 0 0 0 Reactive Lymphocytes 0 0 0 Platelet Estimate Adequate Adequate Adequate Macrocytosis Slight Slight Moderate Sodium Level 138 137 134 L 136-145 mmol/L Potassium Level 4.2 4.5 4.3 3.5-5.1 mmol/L Chloride Level 98 96 L 90 L 98-107 mmol/L Carbon Dioxide Level 22 20 27 20-31 mmol/L Anion Gap 18 H 21 H 17 H 5-15 Blood Urea Nitrogen 41 #H 31 H 22 9-23 mg/dL Creatinine 14.82 #*H 12.81 *H 10.89 *H 0.700-1.30 mg/dL Glomerular Filtration Rate Calc 4 5 6 >90 mL/min BUN/Creatinine Ratio 2.8 L 2.4 L 2.0 L 10.0-20.0 Serum Glucose 74 53 L 76 74-106 mg/dL Calcium Level 8.3 L 9.2 9.8 8.7-10.4 mg/dL Total Bilirubin 0.3 0.3 0.5 0.2-1.0 mg/dL Aspartate Amino Transferase (AST) 25 28 41 H 13-40 U/L Alanine Aminotransferase (ALT) 17 16 25 7-40 U/L Alkaline Phosphatase 77 79 97 46-116 U/L Total Protein 7.8 8.0 8.9 H 5.7-8.2 g/dL Albumin 4.2 4.5 5.1 H 3.2-4.8 g/dL Stool Occult Blood Negative Negative Stool Occult Blood Sample #3 Negative Stool for White Cells Few Eosinophils (%) (Auto) 3 Not Estab. % Absolute Neutrophils (auto) 3.3 1.4-7.0 x10E3/uL Absolute Lymphocytes (auto) 0.5 L 0.7-3.1 x10E3/uL Absolute Monocytes (auto) 0.7 0.1-0.9 x10E3/uL Absolute Eosinophils (auto) 0.1 0.0-0.4 x10E3/uL Absolute Basophils (auto) 0.0 0.0-0.2 x10E3/uL Immature Granulocytes % 0 Not Estab. % Immature Granulocytes # 0 0.0-0.1 x10E3/uL Nucleated Red Blood Cells . Immature Blood Cells . Hematology Comments . Percent CD4 Cells 25.1 L 30.8-58.5 % Absolute CD4 Count 126 L 359-1519 /uL T-Lymphocyte CD4/CD8 Ratio 0.47 L 0.92-3.72 Percent CD8 Cells 53.2 H 12.0-35.5 % Absolute CD8 Count 266 109-897 /uL Anisocytosis (manual) Slight Prothrombin Time 10.9 9.3-11.8 sec Prothrombin Time INR 1.03 0.9-1.15 Activated Partial Thromboplast Time 30.7 24.5-34.5 SEC Hemoglobin A1c 4.2 <5.7 % A1C Phosphorus Level 5.2 H 2.4-5.1 mg/dL Magnesium Level 2.3 1.6-2.6 mg/dL Direct Bilirubin 0.2 <0.3 mg/dL C-Reactive Protein High Sensitivity 10.69 H <1.0 mg/dL Triglycerides Level 284 H < 150 mg/dL Cholesterol Level 210 H < 200 mg/dL LDL Cholesterol 111 H < 100 mg/dL HDL Cholesterol 45 40-59 mg/dL Lipase 141 H 12-53 U/L Vitamin B12 Level 634 211-911 pg/mL Vitamin D 25-Hydroxy 74.5 30.0-100 ng/mL Thyroid Stimulating Hormone (TSH) 4.01 0.55-4.78 uIU/mL Assessment Acute infectious enterocolitis ESRD on dialysis HIV infection on Biktarvy Pancreatitis, ruled out Plan/Recommendation Agreement with your ongoing assessment and plan of care. Schedule HD 06/10. Renally dose medications. Monitor renal function and electrolytes. IV antibiotics with Ceftriaxone and Metronidazole. Additional stool cultures pending. Protonix. Clear liquid diet. Restrict IV fluids. Continue Sevelamer 800. DVT prophylaxis: SCDs. Additional plan as per the hospital course. Plan discussed with: Patient, Other (RN) SAGAR VIDES DO Jun 09, 2025 21:15
[2025-06-09 23:00] VITALS: BP 116/88; PULSE 80; RESP 18; TEMP 97.8; O2SAT 100
[2025-06-09] MEDS: SULFAMETHOX W/TRIMETH(800/160MG) DS TAB PO SCH (23:17)
[2025-06-10] VITALS (8 sets, daily range): BP systolic 97–121; BP diastolic 56–74; PULSE 75–82; RESP 16–20; TEMP 98–98.8; O2SAT 95–98
[2025-06-10 05:13] LABS: Hematocrit 41.9 % (41.0-53.0); Hemoglobin 14.0 g/dL (13.5-17.5); Mean Corpuscular Hemoglobin 35.4 pg (28.0-32.0); Mean Corpuscular Volume 106.0 fL (80.0-100.0)
[2025-06-10 05:25] LABS: Alanine Aminotransferase 17 U/L (7-40); Albumin 4.2 g/dL (3.2-4.8); Alkaline Phosphatase 77 U/L (46-116); Anion Gap 18 (5-15); BUN/Creatinine Ratio 2.8 (10.0-20.0); Carbon Dioxide 22 mmol/L (20-31); Chloride 98 mmol/L (98-107); Potassium 4.2 mmol/L (3.5-5.1); Sodium 138 mmol/L (136-145); Total Protein 7.8 g/dL (5.7-8.2)
[2025-06-10] MEDS: PANTOPRAZOLE 40 MG TAB PO SCH (05:27)
[2025-06-10 05:44] LABS: Blood Urea Nitrogen 41 mg/dL (9-23); Calcium 8.3 mg/dL (8.7-10.4); Glucose 74 mg/dL (74-106)
[2025-06-10 05:45] LABS: Bilirubin, Total 0.3 mg/dL (0.2-1.0)
[2025-06-10 05:54] LABS: Macrocytosis Slight; Total Cells Counted 100.0 (100)
[2025-06-10 09:08] LABS: Hematocrit 42.5 % (37.5-51.0); Hemoglobin 13.9 g/dL (13.0-17.7); MCH 35.4 pg (26.6-33.0); MCHC 32.7 g/dL (31.5-35.7); MCV 108 fL (79-97); RBC 3.93 x10E6/uL (4.14-5.80); RDW 14.0 % (11.6-15.4); WBC 4.7 x10E3/uL (3.4-10.8)
[2025-06-10 14:07] LABS: CD4/CD8 Ratio 0.47 (0.92-3.72)
--- NOTE | 2025-06-10 14:39 | DVHPNRES ---
Progress Note Date Seen: Jun 10, 2025 Resident Creating Document: BILLY JORGE Medical Necessity Reason Pt with a Central, PICC or Fol: No Subjective Review of Systems Patient is a 35-year-old male with past medical history of HIV infection on Biktarvy, ESRD on dialysis, hypertension, presented to [facility] ED with complaint of nausea and diarrhea. Symptoms started 5 days back, he complained diarrheal episodes every 2 hours, described as watery like consistency, brown in color, without blood. He also complained of associated loss of appetite, nausea and vomiting. Patient reported 1 or 2 episode of vomiting daily, vomitus contained food/clear liquid, no hematemesis. He reports losing 4 lb weight since the start of this week, owing to loss of appetite. He traveled to [facility] 2 weeks ago but denies eating from food truck or any consumption of raw seafood. He is on hemodialysis, Tuesdays, Saturdays. Patient reports being compliant on his medications. Patient was seen and examined at bedside. Overnight events were reviewed. The patient reports severe watery diarrhea, with 5 bowel movements yesterday and 2 this morning. The patients creatinine level is elevated at 14.82. Dialysis is scheduled for today. Objective vital signs Vital Sign Date Time Temp Pulse Resp B/P (MAP) Pulse Ox O2 Delivery O2 Flow Rate FiO2 06/10/25 12:35 98.0 75 20 97/56 (70) 97 98.0 06/10/25 08:00 Room Air* 0 21 Total Intake and Output 06/09/25 06/09/25 06/10/25 15:00 23:00 07:00 Intake Total 100 ml 500 ml 475 ml Balance 100 ml 500 ml 475 ml medications Current Medications Medications Dose Ordered Sig/Keith Route Start Time Stop Time Status Last Admin Dose Admin Ondansetron HCl 4 mg Q4HP PRN IV 06/08/25 23:00 Morphine Sulfate 2 mg Q4HPRN PRN IV 06/08/25 23:00 Metronidazole 100 ml @ 100 mls/hr Q8HR IV 06/08/25 23:00 06/10/25 05:27 100 MLS/HR Ceftriaxone Sodium 50 ml @ 100 mls/hr DAILY@09 IV 06/09/25 23:00 06/10/25 09:10 100 MLS/HR Sevelamer HCl 800 mg TIDWM PO 06/09/25 08:00 06/10/25 12:12 800 MG Patient Own Medication 1 DAILY PO 06/09/25 10:00 06/09/25 12:47 1 Trimethoprim/ Sulfamethoxazole 0.5 tab BID PO 06/09/25 22:00 06/10/25 09:09 0.5 TAB Pantoprazole Sodium 40 mg DAILY@0600 PO 06/10/25 06:00 06/10/25 05:27 40 MG Examination General: Patient looks cachectic. Patient alert and oriented in person, place and time. Patient following commands. HEENT: Conjunctival injection in bilateral eyes, dry mucous membranes Respiratory/pulmonary: Clear lungs bilaterally, vesicular murmurs present in almost all lung cuellar, no associated crackles or wheezes. Cardiovascular: Normal heart sounds S1 and S2 with no associated murmurs Abdomen: Sunken abdomen without tenderness Extremities: Well-healed fistula on left arm Peripheral Pulses: 3+ Radial (R). 3+ Radial (L). 3+ Dorsalis pedis (R). 3+ Dorsalis pedis(L) Skin: No rashes or pruritus, there is no sacral edema present at this time. Neurological: Intact cranial nerves with no focal neurologic deficits laboratory and microbiology Laboratory Tests 06/10/25 04:38 Test 06/10/25 04:38 Range/Units Serum Glucose 74 74-106 mg/dL Labs and/or images reviewed: Labs reviewed by me, Image(s) reviewed by me Problem List/Assessment/Plan Problem List/Assessment/Plan Assessment/Plan Acute infectious enterocolitis Labs showed neutrophilic leukocytosis IV fluids IV ceftriaxone 1 g daily IV metronidazole 500 mg 3 times daily Monitor electrolytes, avoid opioids Stool Culture No Campylobacter antigen detected Shiga Toxin 1&2 Negative (-) HIV infection on Biktarvy Absolute CD4 count 126 Absolute CD8 count 266 [id number] (Bactrim) for PCP prophylaxis Continue anti-retroviral medication ESRD on dialysis Dialysis days TTS Restricting IV fluids to avoid fluid overload Nephrology consulted Continue sevelamer 800 Renally dosed drugs Low salt diet Repeat BMP Pancreatitis, ruled out Lipase elevated CT abdomen shows no acute pancreatitis, questionable gallbladder sludge DIET: Soft DVT PROPHYLAXIS: Sequential compression device GI PROPHYLAXIS: Protonix Goals of care: Full code, discussed for >20 minutes on 06/10/25 Plan discussed with patient Plan discussed with Dr. Angel Plan discussed with: Patient, Other (RN) Date of Service: Jun 10, 2025 Billing Provider: NATA ANGEL MD Common Visit Codes: [id number] INP/OBS CARE(HIGH) BILLY JORGE RESIDENT Jun 10, 2025 14:38 NATA ANGEL MD Jun 11, 2025 00:20
[2025-06-10] MEDS: CHOLESTYRAMINE 4 GM POWDER PO ONE (15:32)
--- NOTE | 2025-06-10 18:46 | DVHPN2 ---
Progress Note - Dictate Date Seen: Jun 10, 2025 Medical Necessity Reason Pt with a Central, PICC or Fol: No Subjective Patient was seen and evaluated in follow up. No acute events overnight. Patient reports having abdominal discomfort, severe watery diarrhea with 5 bowel movements yesterday and 2 this morning. Scheduled for dialysis today. vital signs Vital Sign Date Time Temp Pulse Resp B/P (MAP) Pulse Ox O2 Delivery O2 Flow Rate FiO2 06/10/25 16:50 98.4 80 20 115/71 (86) 96 98.4 06/10/25 08:00 Room Air* 0 21 Total Intake and Output 06/09/25 06/09/25 06/10/25 15:00 23:00 07:00 Intake Total 100 ml 500 ml 475 ml Balance 100 ml 500 ml 475 ml medications Current Medications Medications Dose Ordered Sig/Keith Route Start Time Stop Time Status Last Admin Dose Admin Ondansetron HCl 4 mg Q4HP PRN IV 06/08/25 23:00 Morphine Sulfate 2 mg Q4HPRN PRN IV 06/08/25 23:00 Metronidazole 100 ml @ 100 mls/hr Q8HR IV 06/08/25 23:00 06/10/25 15:32 Ceftriaxone Sodium 50 ml @ 100 mls/hr DAILY@09 IV 06/09/25 23:00 06/10/25 09:10 Sevelamer HCl 800 mg TIDWM PO 06/09/25 08:00 06/10/25 18:06 Patient Own Medication 1 DAILY PO 06/09/25 10:00 06/09/25 12:47 Trimethoprim/ Sulfamethoxazole 0.5 tab BID PO 06/09/25 22:00 06/10/25 09:09 Pantoprazole Sodium 40 mg DAILY@0600 PO 06/10/25 06:00 06/10/25 05:27 objective Vitals and nursing notes reviewed. General: Cachectic. In no acute distress. HEENT: Conjunctival injection in bilateral eyes, dry mucous membranes. Respiratory/pulmonary: Clear lungs bilaterally. No associated crackles or wheezes. Cardiovascular: Normal heart sounds S1 and S2 with no associated murmurs Abdomen: No abdominal distension. Sunken abdomen without tenderness. Extremities: Well-healed fistula on left arm. No extremity deformity. Skin: No rashes or pruritus, there is no sacral edema present at this time. Neurological: Intact cranial nerves with no focal neurologic deficits. Alert and oriented to person, place and time. laboratory and microbiology Laboratory Tests 06/10/25 04:38 Test 06/10/25 04:38 Range/Units Serum Glucose 74 74-106 mg/dL Problem List Acute infectious enterocolitis ESRD on dialysis HIV infection on Biktarvy Pancreatitis, ruled out Assessment/Plan Agree with current supportive medical care. Scheduled for dialysis today. Monitor renal function and electrolytes. IV antibiotics with Ceftriaxone and Bactrim p.o. Stool cultures pending. Protonix 40 mg PO daily. Clear liquid diet. Continue Sevelamer 800 TID. DVT prophylaxis: SCDs. Additional plan as per the hospital course. Plan discussed with: Patient, Other (RN) SAGAR VIDES DO Jun 10, 2025 18:46
[2025-06-11 01:00] VITALS: BP 105/71; PULSE 104; RESP 18; TEMP 99.1; O2SAT 98
[2025-06-11 05:00] VITALS: BP 98/63; PULSE 86; RESP 18; TEMP 98.7; O2SAT 98
[2025-06-11 08:00] VITALS: RESP 18; O2SAT 97
[2025-06-11 09:00] VITALS: BP 123/77; PULSE 105; RESP 20; TEMP 97.7; O2SAT 98
[2025-06-11 09:26] LABS: Hemoglobin 14.2 g/dL (13.5-17.5); Nucleated Red Blood Cells % 0.1 %
[2025-06-11 09:28] LABS: Hematocrit 42.9 % (41.0-53.0); Mean Corpuscular Hemoglobin 35.6 pg (28.0-32.0); Mean Corpuscular Volume 107.7 fL (80.0-100.0)
[2025-06-11 09:43] LABS: Alanine Aminotransferase 18 U/L (7-40); Albumin 4.6 g/dL (3.2-4.8); Alkaline Phosphatase 75 U/L (46-116); Anion Gap 23 (5-15); BUN/Creatinine Ratio 1.8 (10.0-20.0); Blood Urea Nitrogen 20 mg/dL (9-23); Calcium 9.2 mg/dL (8.7-10.4); Carbon Dioxide 21 mmol/L (20-31); Glucose 88 mg/dL (74-106); Potassium 3.7 mmol/L (3.5-5.1); Sodium 139 mmol/L (136-145)
[2025-06-11 09:44] LABS: Bilirubin, Total 0.3 mg/dL (0.2-1.0)
[2025-06-11 10:26] LABS: Chloride 95 mmol/L (98-107); Total Protein 8.3 g/dL (5.7-8.2)
[2025-06-11 13:00] VITALS: BP 109/68; PULSE 85; RESP 20; TEMP 97.7; O2SAT 98
--- NOTE | 2025-06-11 13:00 | DVHINCON2 ---
Date of service: Jun 10, 2025 Family History: Patient reports no known family medical history. Allergies: Coded Allergies: NO KNOWN ALLERGIES (Unverified , 10/09/24) Current Medications Current Medications Medications (Trade) Dose Ordered Sig/Keith Route PRN Reason Start Time Stop Time Status Last Admin Kamran Durbin (Florastor) 250 mg BID PO 06/11/25 22:00 UNV Vital Signs Vital Signs Date Time Temp Pulse Resp B/P (MAP) Pulse Ox O2 Delivery O2 Flow Rate FiO2 06/11/25 09:00 97.7 105 20 123/77 (92) 98 97.7 06/11/25 08:00 Room Air* 0 21 Labs/Diagnostic Data Labs Test 06/11/25 08:50 06/10/25 20:10 06/10/25 04:38 06/10/25 04:35 Range/Units White Blood Count 5.9 # 4.4-10.8 10^3/uL Red Blood Count 3.98 L 4.5-5.90 10^6/uL Hemoglobin 14.2 13.5-17.5 g/dL Hematocrit 42.9 41.0-53.0 % Mean Corpuscular Volume 107.7 H 80.0-100.0 fL Mean Corpuscular Hemoglobin 35.6 H 28.0-32.0 pg Mean Corpuscular Hemoglobin Concent 33.1 32.0-36.0 g/dL Red Cell Distribution Width 16.4 H 11.8-14.3 % Platelet Count 147 140-450 10^3/uL Mean Platelet Volume 9.3 6.9-10.8 fL Neutrophils (%) (Auto) 56.5 37.0-80.0 % Lymphocytes (%) (Auto) 21.2 10.0-50.0 % Monocytes (%) (Auto) 18.0 H 0.0-12.0 % Eosinophils (%) (Auto) 3.9 0.0-7.0 % Basophils (%) (Auto) 0.4 0.0-2.0 % Neutrophils # (Auto) 3.3 1.6-8.6 10 ^3/uL Lymphocytes # (Auto) 1.2 0.4-5.4 10 ^3/uL Monocytes # (Auto) 1.1 0-1.3 10 ^3/uL Eosinophils # (Auto) 0.2 0-0.8 10 ^3/uL Basophils # (Auto) 0 0-0.2 10 ^3/uL Nucleated Red Blood Cells 0.1 % Sodium Level 139 136-145 mmol/L Potassium Level 3.7 3.5-5.1 mmol/L Chloride Level 95 L 98-107 mmol/L Carbon Dioxide Level 21 20-31 mmol/L Anion Gap 23 H 5-15 Blood Urea Nitrogen 20 # 9-23 mg/dL Creatinine 11.35 #*H 0.700-1.30 mg/dL Glomerular Filtration Rate Calc 5 >90 mL/min BUN/Creatinine Ratio 1.8 L 10.0-20.0 Serum Glucose 88 74-106 mg/dL Calcium Level 9.2 8.7-10.4 mg/dL Total Bilirubin 0.3 0.2-1.0 mg/dL Aspartate Amino Transferase (AST) 30 13-40 U/L Alanine Aminotransferase (ALT) 18 7-40 U/L Alkaline Phosphatase 75 46-116 U/L Total Protein 8.3 H 5.7-8.2 g/dL Albumin 4.6 3.2-4.8 g/dL Differential Total Cells Counted 100.0 100 Neutrophils % (Manual) 74 37.0-80.0 Band Neutrophils % (Manual) 1 Lymphocytes % (Manual) 15 10.0-50.0 Monocytes % (Manual) 3 0-12 Eosinophils % (Manual) 6 0-7 Basophils % (Manual) 0 0.0-2.0 Metamyelocytes % (manual) 0 Myelocytes % (Manual) 1 Promyelocytes % (Manual) 0 Blast Cells % (Manual) 0 Reactive Lymphocytes 0 Platelet Estimate Adequate Macrocytosis Slight Stool Occult Blood Negative Negative Stool Occult Blood Sample #3 Negative Stool for White Cells Few Test 06/09/25 06:31 06/08/25 15:29 Range/Units Absolute Neutrophils (auto) 3.3 1.4-7.0 x10E3/uL Absolute Lymphocytes (auto) 0.5 L 0.7-3.1 x10E3/uL Absolute Monocytes (auto) 0.7 0.1-0.9 x10E3/uL Absolute Eosinophils (auto) 0.1 0.0-0.4 x10E3/uL Absolute Basophils (auto) 0.0 0.0-0.2 x10E3/uL Immature Granulocytes % 0 Not Estab. % Immature Granulocytes # 0 0.0-0.1 x10E3/uL Immature Blood Cells . Hematology Comments . Percent CD4 Cells 25.1 L 30.8-58.5 % Absolute CD4 Count 126 L 359-1519 /uL T-Lymphocyte CD4/CD8 Ratio 0.47 L 0.92-3.72 Percent CD8 Cells 53.2 H 12.0-35.5 % Absolute CD8 Count 266 109-897 /uL Anisocytosis (manual) Slight Prothrombin Time 10.9 9.3-11.8 sec Prothrombin Time INR 1.03 0.9-1.15 Activated Partial Thromboplast Time 30.7 24.5-34.5 SEC Hemoglobin A1c 4.2 <5.7 % A1C Phosphorus Level 5.2 H 2.4-5.1 mg/dL Magnesium Level 2.3 1.6-2.6 mg/dL Direct Bilirubin 0.2 <0.3 mg/dL C-Reactive Protein High Sensitivity 10.69 H <1.0 mg/dL Triglycerides Level 284 H < 150 mg/dL Cholesterol Level 210 H < 200 mg/dL LDL Cholesterol 111 H < 100 mg/dL HDL Cholesterol 45 40-59 mg/dL Lipase 141 H 12-53 U/L Vitamin B12 Level 634 211-911 pg/mL Vitamin D 25-Hydroxy 74.5 30.0-100 ng/mL Thyroid Stimulating Hormone (TSH) 4.01 0.55-4.78 uIU/mL Microbiology Date/Time Source Procedure Growth Status 06/10/25 04:35 Stool Stool Culture - Preliminary Resulted 06/10/25 04:35 Stool Shiga Toxin I & II - Final Resulted Problems(with codes): (1) AIDS (2) Diarrhea (3) Intractable nausea and vomiting (4) Near syncope Plan/Recommendation ASSESSMENT AND PLAN: ID Problem List: \-- HIV/AIDS (CD4 126, noncompliance with ART, on Biktarvy) \-- End-stage renal disease on dialysis \-- Hypertension \-- Electrolyte depletion and dehydration (secondary to vomiting/diarrhea) \-- Diarrhea and vomiting (presumed infectious colitis vs. other etiologies) \-- Past syphilis \-- Cachexia Assessment This is a 35-year-old male with a past medical history of HIV (noncompliant, on Biktarvy, CD4 near AIDS-defining), end-stage renal disease on dialysis, hypertension, and prior syphilis, who presents with several days of non-bloody, non-bilious vomiting and watery diarrhea. He reports a four-pound weight loss and recent travel to [place] with exposure to food trucks. He denies raw food consumption. Patient appears clinically dry and cachectic on examination. Laboratory studies are notable for leukopenia (WBC 4.4), normal hemoglobin and platelets, significant renal dysfunction (creatinine 10.89), and mild hyponatr emia and hypochloremia. CD4 count is 126, CD4% 25.1. Review of home medications revealed dosing issues with Biktarvy given renal impairment; ART has been held and will require adjustments prior to discharge. Patient is also on amiodarone, sevelamer, and Bactrim. Infectious workup so far includes preliminary stool cultures which are negative for Campylobacter and Shigella; Shiga toxin is negative. HIV colitis, bacterial colitis, and multiple protozoal/parasitic organisms (Giardia, Cryptosporidium, Cyclospora, Isospora) are on the differential. C. diff is being considered, to be tested if there are worsening labs/fevers. Imaging demonstrates diffuse enterocolitis on CT abdomen/pelvis and unremarkable chest X-ray. The patient is recommended for fluid resuscitation and close fluid balance monitoring in conjunction with nephrology. Empiric ceftriaxone and metronidazole (Flagyl) are continued for possible bacterial colitis. Close monitoring of HIV parameters (CD4, viral load) and infectious workup is ongoing. Given advanced HIV and potential for severe infection, transfer to higher-level care (e.g., [facility]) may be considered if clinical status worsens. Plan: \-- Hold ART regimen for now; adjust dosing prior to discharge and discontinue redundant agents (lamivudine, abacavir, Tivicay) as patient is on Biktarvy. \-- Continue ceftriaxone and metronidazole empirically for presumed infectious colitis. \-- Fluid resuscitation and electrolyte repletion as needed; dialysis and fluid balance per nephrology. \-- Continue monitoring for fevers, lab changes, and clinical deterioration. \-- Stool studies: culture, ova and parasite x3, Giardia antigen, CMV PCR/antibodies, Cryptosporidium, Cyclospora, Isospora, C. diff as indicated. \-- Stop Bactrim if not tolerated; consider alternatives for PCP prophylaxis if indicated (atovaquone, dapsone). \-- Monitor and adjust HIV regimen based on laboratory results and tolerance. \-- Consider transfer to tertiary care if develops severe AIDS-related complications or sepsis. \-- Infectious Diseases consult for further guidance on regimen and workup. Isolation Precautions: Standard \*Assessment and plan discussed with the patient as documented above. \*Plan will be updated as additional information becomes available. Thank you for consult. ID will continue to follow. Please contact Infectious Disease for questions or concerns. Christine Gardiner M.D. [facility] Ph: ? Teams text: [email or web address] Electronically signed by: Christine Gardiner MD, 06/11/2025 \ History: The patient's chart and medications were reviewed in detail and the patient was seen and examined. History obtained from: patient Mr. Dandre Huitron is a 35-year-old male with a past medical history of HIV (on Biktarvy, noncompliant), end-stage renal disease on dialysis, hypertension, prior syphilis, who presents with five days of vomiting and diarrhea. Vomiting is non-bloody, non-bilious. Diarrhea is watery without blood. Four-pound weight loss reported. Recent travel to [place], ate from multiple food trucks, but denies raw food consumption. No alcohol, tobacco, or recreational drug use. No recent surgeries. Review of Systems: A complete 10-system review of systems was completed and negative except as noted in the HPI or here. ROS: -CONSTITUTIONAL: Reports weight loss. Denies fever and chills. -HEENT: Denies changes in vision and hearing. -RESPIRATORY: Denies shortness of breath and cough. -CARDIOVASCULAR: Denies palpitations and chest pain. -GI: Reports nausea, vomiting, and diarrhea as described. Denies abdominal pain, no blood in stool. -: Denies dysuria and urinary frequency. -MSK: Denies myalgia and joint pain. -SKIN: Denies rash and pruritus. -NEUROLOGICAL: Denies headache and syncope. -PSYCHIATRIC: Denies recent changes in mood, anxiety, or depression. Past Medical History: HIV (CD4 126, noncompliant with ART) End-stage renal disease on dialysis Hypertension Adrenal disease History of syphilis Past Surgical History: No pertinent surgical history. Home Medications: Biktarvy (dose requires renal adjustment; currently held) Amiodarone Sevelamer Bactrim (for PCP prophylaxis; to be reassessed based on tolerance and dialysis requirements) Lamivudine (recently discontinued) Tivicay (recently discontinued) Abacavir (recently discontinued) Allergies: No known drug allergies. Family History: Not discussed. Social History: No tobacco, alcohol, or recreational drug use. No sexual activity reported. No details regarding marital status, occupation, or children. Objective: Vital Signs on Arrival: Temp: 38.6 C (101.5 F) BP: 116/72 Pulse: 88, later 96 Resp: 17 SpO2: Breathing room air Most Recent Vital Signs: Not separately provided. Admission Weight: Not provided. Physical Exam: General: Thin, cachectic appearance; in NAD Neck: Supple. No masses. HEENT: PERRL. Normal lids and conjunctiva. Moist mucous membranes. Oropharynx without lesions, exudates or excessive erythema. Normal appearance of the external aspects of the nose and ears. Heart: Regular rhythm, normal rate. No murmur. No lower extremity edema. Lungs: Normal respiratory effort. Clear to auscultation bilaterally. No wheezes. No crackles. Abdomen: Soft. Non-tender. Non-distended. Hypoactive bowel sounds. No masses or abdominal hernia. Msk: No digital cyanosis. Normal strength and tone in all 4 limbs. Skin: Warm and dry, no rashes. Neuro: Alert. No facial droop or slurred speech. Extra-ocular movements intact. Sensation intact to soft touch in all 4 limbs. Psych: Appropriate mood. Full affect. Oriented to person, place, time, and situation. Lines: Active vascular access for dialysis: AV fistula in left arm Diagnostic Studies: Available diagnostic studies were reviewed personally. Significant relevant res ults and findings are outlined below or addressed in the Assessment and Plan above. Pertinent Imaging: CT Abdomen/Pelvis: -Diffuse enterocolitis -Increased density of gallbladder, possibly due to recent contrast or sludge/stones -Advanced renal atrophy -Unremarkable pancreas Chest X-ray: -No acute cardiopulmonary disease Pertinent Laboratory Data: -WBC: 4.4 -Hgb: 15.4 -Plt: 181 -Cr: 10.89 (ESRD) -BUN: 0.2 -Ca: 9.8 -Sodium: 134 -Potassium: 4.3 -Chloride: 90 -CD4: 126, CD4%: 25.1 -Viral load: Undetectable (prior visit) -Stool cultures negative for Campylobacter and Shigella, Shiga toxin negative Electronically signed by: Christine Gardiner MD, 06/11/2025 Plan discussed with: Patient CHRISTINE GARDINER MD Jun 11, 2025 13:00
[2025-06-11] MEDS ORDERED: SACC250C PO (13:16)
[2025-06-11] MEDS ORDERED: METR-344 PO (13:16)
[2025-06-11] MEDS ORDERED: LEVO500T91 PO (13:16)
--- NOTE | 2025-06-11 13:26 | DVHPN2 ---
Consult Progress Note Date Seen: Jun 11, 2025 Subjective Patient reports: Feels better Objective vital signs Vital Sign Date Time Temp Pulse Resp B/P (MAP) Pulse Ox O2 Delivery O2 Flow Rate FiO2 06/11/25 09:00 97.7 105 20 123/77 (92) 98 97.7 06/11/25 08:00 Room Air* 0 21 Total Intake and Output 06/10/25 06/10/25 06/11/25 15:00 23:00 07:00 Intake Total 50 ml 700 ml 545 ml Balance 50 ml 700 ml 545 ml medications Current Medications Medications Dose Ordered Sig/Keith Route Start Time Stop Time Status Last Admin Dose Admin Ondansetron HCl 4 mg Q4HP PRN IV 06/08/25 23:00 Morphine Sulfate 2 mg Q4HPRN PRN IV 06/08/25 23:00 Metronidazole 100 ml @ 100 mls/hr Q8HR IV 06/08/25 23:00 06/11/25 05:48 100 MLS/HR Ceftriaxone Sodium 50 ml @ 100 mls/hr DAILY@09 IV 06/09/25 23:00 06/11/25 07:59 100 MLS/HR Sevelamer HCl 800 mg TIDWM PO 06/09/25 08:00 06/11/25 12:00 800 MG Patient Own Medication 1 DAILY PO 06/09/25 10:00 06/11/25 08:00 1 Trimethoprim/ Sulfamethoxazole 0.5 tab BID PO 06/09/25 22:00 06/11/25 08:00 0.5 TAB Pantoprazole Sodium 40 mg DAILY@0600 PO 06/10/25 06:00 06/10/25 05:27 40 MG Saccharomyces Boulardii 250 mg BID PO 06/11/25 22:00 Physical Exam: General: Thin, cachectic appearance; in NAD Neck: Supple. No masses. HEENT: PERRL. Normal lids and conjunctiva. Moist mucous membranes. Oropharynx without lesions, exudates or excessive erythema. Normal appearance of the external aspects of the nose and ears. Heart: Regular rhythm, normal rate. No murmur. No lower extremity edema. Lungs: Normal respiratory effort. Clear to auscultation bilaterally. No wheezes. No crackles. Abdomen: Soft. Non-tender. Non-distended. Hypoactive bowel sounds. No masses or abdominal hernia. Msk: No digital cyanosis. Normal strength and tone in all 4 limbs. Skin: Warm and dry, no rashes. Neuro: Alert. No facial droop or slurred speech. Extra-ocular movements intact. Sensation intact to soft touch in all 4 limbs. Psych: Appropriate mood. Full affect. Oriented to person, place, time, and situation. laboratory and microbiology Laboratory Tests 06/11/25 08:50 Test 06/11/25 08:50 Range/Units Serum Glucose 88 74-106 mg/dL Problem List/Assessment/Plan Problem List/Assessment/Plan ASSESSMENT AND PLAN: ID Problem List: -- HIV/AIDS (CD4 126, noncompliance with ART, on Biktarvy) -- End-stage renal disease on dialysis -- Hypertension -- Electrolyte depletion and dehydration (secondary to vomiting/diarrhea) -- Diarrhea and vomiting (presumed infectious colitis vs. other etiologies) -- Past syphilis -- Cachexia Assessment This is a 35-year-old male with a past medical history of HIV (noncompliant, on Biktarvy, CD4 near AIDS-defining), end-stage renal disease on dialysis, hypertension, and prior syphilis, who presents with several days of non-bloody, non-bilious vomiting and watery diarrhea. He reports a four-pound weight loss and recent travel to [place] with exposure to food trucks. He denies raw food consumption. Patient appears clinically dry and cachectic on examination. Laboratory studies are notable for leukopenia (WBC 4.4), normal hemoglobin and platelets, significant renal dysfunction (creatinine 10.89), and mild hyponatremia and hypochloremia. CD4 count is 126, CD4% 25.1. Review of home medications revealed dosing issues with Biktarvy given renal impairment; ART has been held and will require adjustments prior to discharge. Patient is also on amiodarone, sevelamer, and Bactrim. Infectious workup so far includes preliminary stool cultures which are negative for Campylobacter and Shigella; Shiga toxin is negative. HIV colitis, bacterial colitis, and multiple protozoal/parasitic organisms (Giardia, Cryptosporidium, Cyclospora, Isospora) are on the differential. C. diff is being considered, to be tested if there are worsening labs/fevers. Imaging demonstrates diffuse enterocolitis on CT abdomen/pelvis and unremarkable chest X-ray. The patient is recommended for fluid resuscitation and close fluid balance monitoring in conjunction with nephrology. Empiric ceftriaxone and metronidazole (Flagyl) are continued for possible bacterial colitis. Close monitoring of HIV parameters (CD4, viral load) and infectious workup is ongoing. Given advanced HIV and potential for severe infection, transfer to higher-level care ([facility]) may be considered if clinical status worsens. 06/11: CD4 percentage is high, viral load is UD in February. Plan: -- patient was transitioned from [facility] to [facility] recently, recommend awaiting viral load check to ensure patient is on a responsive medication -- hold bactrim ppx until discharge -- less concerned with opportunistic infection given high CD4 percentage, will fu on pending stool and serology studies -- Stool studies: culture, ova and parasite x3, Giardia antigen, CMV PCR/antibodies, Cryptosporidium, Cyclospora, Isospora, C. diff as indicated. --- Fluid resuscitation and electrolyte repletion as needed; dialysis and fluid balance per nephrology. -- Continue monitoring for fevers, lab changes, and clinical deterioration. -- Consider transfer to tertiary care if develops severe AIDS-related complications or sepsis. Isolation Precautions: Standard *Assessment and plan discussed with the patient as documented above. *Plan will be updated as additional information becomes available. Thank you for consult. ID will continue to follow. Please contact Infectious Disease for questions or concerns. Christine Gardiner M.D. [facility] Ph: ? Teams text: Electronically signed by: Christine Gardiner MD, 06/11/2025 Plan discussed with: Patient CHRISTINE GARDINER MD Jun 11, 2025 13:26
[2025-06-11 13:43] VITALS: BP 123/77; PULSE 105; RESP 20; TEMP 97.7; O2SAT 98
--- NOTE | 2025-06-11 17:06 | DVHDSRES ---
Discharge Summary Date of Admission Resident Creating Document: JULIETH WOLFE Jun 08, 2025 at 22:52 Date of Discharge: Jun 11, 2025 Labs/Diagnostic Data: Laboratory Results Test 06/11/25 08:50 06/10/25 20:10 06/10/25 04:38 06/10/25 04:35 White Blood Count 5.9 10^3/uL (4.4-10.8) Red Blood Count 3.98 10^6/uL (4.5-5.90) Hemoglobin 14.2 g/dL (13.5-17.5) Hematocrit 42.9 % (41.0-53.0) Mean Corpuscular Volume 107.7 fL (80.0-100.0) Mean Corpuscular Hemoglobin 35.6 pg (28.0-32.0) Mean Corpuscular Hemoglobin Concent 33.1 g/dL (32.0-36.0) Red Cell Distribution Width 16.4 % (11.8-14.3) Platelet Count 147 10^3/uL (140-450) Mean Platelet Volume 9.3 fL (6.9-10.8) Neutrophils (%) (Auto) 56.5 % (37.0-80.0) Lymphocytes (%) (Auto) 21.2 % (10.0-50.0) Monocytes (%) (Auto) 18.0 % (0.0-12.0) Eosinophils (%) (Auto) 3.9 % (0.0-7.0) Basophils (%) (Auto) 0.4 % (0.0-2.0) Neutrophils # (Auto) 3.3 10 ^3/uL (1.6-8.6) Lymphocytes # (Auto) 1.2 10 ^3/uL (0.4-5.4) Monocytes # (Auto) 1.1 10 ^3/uL (0-1.3) Eosinophils # (Auto) 0.2 10 ^3/uL (0-0.8) Basophils # (Auto) 0 10 ^3/uL (0-0.2) Nucleated Red Blood Cells 0.1 % Sodium Level 139 mmol/L (136-145) Potassium Level 3.7 mmol/L (3.5-5.1) Chloride Level 95 mmol/L (98-107) Carbon Dioxide Level 21 mmol/L (20-31) Anion Gap 23 (5-15) Blood Urea Nitrogen 20 mg/dL (9-23) Creatinine 11.35 mg/dL (0.700-1.30) Glomerular Filtration Rate Calc 5 mL/min (>90) BUN/Creatinine Ratio 1.8 (10.0-20.0) Serum Glucose 88 mg/dL (74-106) Calcium Level 9.2 mg/dL (8.7-10.4) Total Bilirubin 0.3 mg/dL (0.2-1.0) Aspartate Amino Transferase (AST) 30 U/L (13-40) Alanine Aminotransferase (ALT) 18 U/L (7-40) Alkaline Phosphatase 75 U/L (46-116) Total Protein 8.3 g/dL (5.7-8.2) Albumin 4.6 g/dL (3.2-4.8) Differential Total Cells Counted 100.0 (100) Neutrophils % (Manual) 74 (37.0-80.0) Band Neutrophils % (Manual) 1 Lymphocytes % (Manual) 15 (10.0-50.0) Monocytes % (Manual) 3 (0-12) Eosinophils % (Manual) 6 (0-7) Basophils % (Manual) 0 (0.0-2.0) Metamyelocytes % (manual) 0 Myelocytes % (Manual) 1 Promyelocytes % (Manual) 0 Blast Cells % (Manual) 0 Reactive Lymphocytes 0 Platelet Estimate Adequate Macrocytosis Slight Stool Occult Blood Negative (Negative) Stool Occult Blood Sample #3 (Negative) Stool for White Cells Few Test 06/09/25 06:31 06/08/25 15:29 Absolute Neutrophils (auto) 3.3 x10E3/uL (1.4-7.0) Absolute Lymphocytes (auto) 0.5 x10E3/uL (0.7-3.1) Absolute Monocytes (auto) 0.7 x10E3/uL (0.1-0.9) Absolute Eosinophils (auto) 0.1 x10E3/uL (0.0-0.4) Absolute Basophils (auto) 0.0 x10E3/uL (0.0-0.2) Immature Granulocytes % 0 % (Not Estab.) Immature Granulocytes # 0 x10E3/uL (0.0-0.1) Immature Blood Cells (.) Hematology Comments (.) Percent CD4 Cells 25.1 % (30.8-58.5) Absolute CD4 Count 126 /uL (359-1519) T-Lymphocyte CD4/CD8 Ratio 0.47 (0.92-3.72) Percent CD8 Cells 53.2 % (12.0-35.5) Absolute CD8 Count 266 /uL (109-897) Anisocytosis (manual) Slight Prothrombin Time 10.9 sec (9.3-11.8) Prothrombin Time INR 1.03 (0.9-1.15) Activated Partial Thromboplast Time 30.7 SEC (24.5-34.5) Hemoglobin A1c 4.2 % A1C (<5.7) Phosphorus Level 5.2 mg/dL (2.4-5.1) Magnesium Level 2.3 mg/dL (1.6-2.6) Direct Bilirubin 0.2 mg/dL (<0.3) C-Reactive Protein High Sensitivity 10.69 mg/dL (<1.0) Triglycerides Level 284 mg/dL (< 150) Cholesterol Level 210 mg/dL (< 200) LDL Cholesterol 111 mg/dL (< 100) HDL Cholesterol 45 mg/dL (40-59) Lipase 141 U/L (12-53) Vitamin B12 Level 634 pg/mL (211-911) Vitamin D 25-Hydroxy 74.5 ng/mL (30.0-100) Thyroid Stimulating Hormone (TSH) 4.01 uIU/mL (0.55-4.78) Other Laboratory Tests 06/11/25 08:50 Brief Hx & Hospital Course: Patient is a 35-year-old male with past medical history of HIV infection on Biktarvy, ESRD on dialysis, hypertension, presented to [facility] ED with complaint of nausea and diarrhea. Symptoms started 5 days back, he complained diarrheal episodes every 2 hours, described as watery like consistency, brown in color, without blood. He also complained of associated loss of appetite, nausea and vomiting. Patient reported 1 or 2 episode of vomiting daily, vomitus contained food/clear liquid, no hematemesis. He reports losing 4 lb weight since the start of this week, owing to loss of appetite. He traveled to [facility] 2 weeks ago but denies eating from food truck or any consumption of raw seafood. He is on hemodialysis, Tuesdays, Saturdays. Patient reports being compliant on his medications. Brief hospital course: The patient was treated for acute infectious enterocolitis, labs showed neutrophilic leukocytosis. He was treated with IV fluid, IV ceftriaxone and metronidazole. His electrolytes were monitored closely. Stool culture reveals no Campylobacter, no Shiga toxin. He was treated with Biktarvy due to HIV infection. His absolute CD4 count was 126 and CD8 count was 266. His Bactrim was held till discharge, however was discharged with Bactrim for prophylaxis for Pneumocystis jiroveci. He continued his anti- retroviral medications. Infectious Disease consult was appreciated. The patient will follow up for pending stool and serologies studies with Infectious Disease. Transfer to tertiary care was considered if develops severe AIDS- related complications or sepsis. The patient was on dialysis due to ESRD. Nephrology consult was appreciated, dialysis was completed inpatient. He was continued on several admitted, BNP was monitored. Pancreatitis was ruled out with lipase negative and CT abdomen showing no pancreatitis. He was maintained on GI prophylaxis by Protonix and DVT prophylaxis was done with SCDs. On the day of discharge, patient's symptoms of diarrhea and abdominal pain improved significantly. He was hemodynamically stable, agreed with treatment and discharge plan. Was advised to follow up with DC clinic PCP and Infectious Disease. Examination General: Patient looks cachectic. Patient alert and oriented in person, place and time. Patient following commands. HEENT: Conjunctival injection in bilateral eyes, dry mucous membranes Respiratory/pulmonary: Clear lungs bilaterally, vesicular murmurs present in almost all lung cuellar, no associated crackles or wheezes. Cardiovascular: Normal heart sounds S1 and S2 with no associated murmurs Abdomen: Sunken abdomen without tenderness Extremities: Well-healed fistula on left arm Peripheral Pulses: 3+ Radial (R). 3+ Radial (L). 3+ Dorsalis pedis (R). 3+ Dorsalis pedis(L) Skin: No rashes or pruritus, there is no sacral edema present at this time. Neurological: Intact cranial nerves with no focal neurologic deficits Case discussed with . Operations or Procedures PATIENT: NOELLE ROWELL ACCT: [id number] UNIT: [id number] : 1990 LOC: OVERFLOW ROOM / BED: 1009-ER / A AGE / SEX: 35 / M ADM STATUS: ADM IN SERVICE [id number] ORDERING PHYSICIAN: JULIANE TALLEY RESIDENT PROCEDURE(s): ABPL - CT AB PEL WO CON-NO ORAL OR IV REASON: Rule out pancreatitis ORDER NUMBER(s): [id number], ACCESSION NUMBER(s): [id number] Exam: CT CT AB PEL WO CON-NO ORAL OR IV History: Rule out pancreatitis Comparison Study: CT abdomen/pelvis 03/30/2025 (report only available) Technique: Multidetector spiral CT of the abdomen was performed from lung bases to pubic symphysis. Imaging was performed without IV contrast. Axial, coronal and sagittal multiplanar reformats were obtained from the axial data set by the technologist. Radiation Dose : 1. Abdomen/Pelvis: CTDIvol 5.07 mGy, DLP 274.92 mGy*cm. Findings: Evaluation of solid organs is limited due to lack of intravenous contrast use. Lower Chest: No acute findings. Liver: Unremarkable. Gallbladder and Biliary Tree: Homogeneously increased density in the gallbladder. No evident wall thickening or ductal dilation. Pancreas: Unremarkable. Spleen: Unremarkable. Adrenal Glands: Thickening without discrete nodule. Kidneys/Ureters: No urinary stone or obstruction. Moderate to severe renal atrophy. Bladder: Grossly unremarkable for degree of distention. Pelvic Organs: Unremarkable as visualized. Bowel: Normal caliber without wall thickening. A majority of small and large bowel loops are gas and/or fluid-filled with a few short air-fluid levels. No evidence of appendicitis. Vasculature: Unremarkable. Lymphadenopathy: No obvious adenopathy. Peritoneum: No ascites, free air, or fluid collection. Abdominal Wall: No significant hernia. Musculoskeletal: No acute findings. IMPRESSION: 1. Unremarkable appearance of the pancreas. 2. CT findings can be seen in the setting of enterocolitis. 3. Diffusely increased density in the gallbladder. Considerations include excretion of recently administered contrast, or diffuse sludge/stone contents. 4. Advanced renal atrophy. PATIENT: NOELLE ROWELL ACCT: [id number] UNIT: [id number] : 1990 LOC: ER ROOM / BED: / AGE / SEX: 35 / M ADM STATUS: REG ER SERVICE [id number] ORDERING PHYSICIAN: TOBY FARRIS MD PROCEDURE(s): CXRP - CHEST PORTABLE REASON: weakness ORDER NUMBER(s): [id number], ACCESSION NUMBER(s): [id number] CHEST RADIOGRAPH Indication: weakness Technique: Single frontal view of the chest was obtained Comparison: XR CHEST 1 VIEW on DOS: 06/08/24, XR CHEST 1 VIEW on DOS: 10/25/23, XR CHEST 1 VIEW on DOS: 10/22/23 FINDINGS: Lines and Tubes: None Lungs: No focal consolidation. Pleura: No effusion. No pneumothorax. Cardiomediastinal contours: Unremarkable Bones: No acute osseous abnormality. IMPRESSION: 1. No acute cardiopulmonary disease. Condition at Discharge: Stable Final Diagnosis/Problems List Acute infectious gastroenteritis AIDS CD4 count 126 ESRD on dialysis Pancreatitis ruled out Discharge Disposition: Home Discharge Instruct/Medications Diet: Regular Activity: No Restrictions, As Tolerated Follow Up/Referral: Follow up with PCP, DC clinic and Nephrology in 1 week. Medications: Metronidazole Levofloxacin Bactrim Scheduled Levofloxacin Hemihydrate (Levofloxacin), 1 TAB PO DAILY Metronidazole (Flagyl), 500 MG PO TID Yeast (S. Boulardii)(S. Cerevi (Florastor), 250 MG PO BID Discharge Statement: "Patient was advised to return to the ER or call 911 if any headaches, dizziness, shortness of breath, chest pain, abdominal pain, bleeding, fevers, or worsening of medical condition. Patient was counseled about treatment plan, medications, possible side effects, patientverbalized understanding. All questions were answered to the best of my ability. This discharge took greater then 30 minutes in planning, reviewing documentation, counseling the patient, and discussing with other team members." ASSESSMENT ASSESSMENT Assessment Acute infectious gastroenteritis Aids Date of Service: Jun 11, 2025 Billing Provider: NATA ANGEL MD Common Visit Codes: 03897-DAV/OBS DISCH DAY >30min JULIETH WOLFE RESIDENT Jun 11, 2025 17:06 NATA ANGEL MD Jun 12, 2025 10:42
--- NOTE | 2025-06-11 20:05 | DVHPN2 ---
Progress Note - Dictate Date Seen: Jun 11, 2025 Medical Necessity Reason Pt with a Central, PICC or Fol: No Subjective Patient was seen and evaluated in follow up. No acute events overnight. Patient reports feeling much better. Planned for discharge home. vital signs Vital Sign Date Time Temp Pulse Resp B/P (MAP) Pulse Ox O2 Delivery O2 Flow Rate FiO2 06/11/25 13:43 97.7 105 20 98 06/11/25 13:00 109/68 (82) 06/11/25 08:00 Room Air* 0 21 Total Intake and Output 06/10/25 06/10/25 06/11/25 15:00 23:00 07:00 Intake Total 50 ml 700 ml 545 ml Balance 50 ml 700 ml 545 ml objective Vitals and nursing notes reviewed. General: Cachectic. In no acute distress. HEENT: Conjunctival injection in bilateral eyes, dry mucous membranes. Respiratory/pulmonary: Clear lungs bilaterally. No associated crackles or wheezes. Cardiovascular: Normal heart sounds S1 and S2 with no associated murmurs Abdomen: Soft, No abdominal distension, Non-tender. Extremities: Well-healed fistula on left arm. No extremity deformity. Skin: No rashes or pruritus, there is no sacral edema present at this time. Neurological: Intact cranial nerves with no focal neurologic deficits. Alert and oriented to person, place and time. laboratory and microbiology Laboratory Tests 06/11/25 08:50 Test 06/11/25 08:50 Range/Units Serum Glucose 88 74-106 mg/dL Problem List Acute infectious enterocolitis ESRD on dialysis HIV infection on Biktarvy Pancreatitis, ruled out Assessment/Plan DC planning in progress. Cleared for discharge from Nephrology standpoint. Resume outpatient dialysis with [facility]. Plan discussed with: Patient, Other (RN) SAGAR VIDES DO Jun 11, 2025 20:05
[2025-06-11] MEDS ORDERED: FLORASTOR (S. BOULARDII) 250 MG CAP PO SCH (22:00)
== END 2025-06-11 14:25 | disposition home or self-care (01) | DRG 977 ==
LOC: ER 14:20 → OVERFLOW 22:52 → WEST WING 06-09 23:00
PROVIDERS: ADMIT Internal Medicine; ATTEND Internal Medicine
PROC: 5A1D70Z Performance of Urinary Filtration, Intermittent, Less than 6 Hours Per Day (ICD-10-PCS; principal; 2025-06-10)
DX: A09 Infectious gastroenteritis and colitis, unspecified (principal); B20 Human immunodeficiency virus [HIV] disease; N18.6 End stage renal disease; I12.0 Hypertensive chronic kidney disease with stage 5 chronic kidney disease or end stage renal disease; E87.1 Hypo-osmolality and hyponatremia; Z68.1 Body mass index [BMI] 19.9 or less, adult; R64 Cachexia; Z91.148 Patient's other noncompliance with medication regimen for other reason; E86.0 Dehydration; E87.8 Other disorders of electrolyte and fluid balance, not elsewhere classified; Z79.899 Other long term (current) drug therapy; E27.9 Disorder of adrenal gland, unspecified; Z99.2 Dependence on renal dialysis; R55 Syncope and collapse
CPT/HCPCS: 36415; 71045; 74176; 80048; 80053; 80061; 80076; 82270; 82306; 82607; 83036; 83690; 83735; 84100; 84443; 85007; 85025; 85027; 85048; 85610; 85730; 86141; 86360; 87045; 87177; 87340; 87427; 87493; 90935; 96361; 96374; G0378; J2405; J3490